=== PATIENT | male | born 1975 | race Caucasian/White ===

== ENCOUNTER 2025-06-17 08:58 | Inpatient (IN) | payer MEDICARE, BC ==
[~2025-06-17] VITALS: Ht 182.9 cm; Wt 97.5 kg
[~2025-06-17 08:58] MED LIST: ARIP882S2 IM; LITH300C3 PO; MIRT-89 PO; XANO1CAP4 PO
[2025-06-17] MEDS ORDERED: ZOLPIDEM TARTRATE 10 MG TABLET PO PRN (10:15)
[2025-06-17 10:50] LABS: GLUCOMETER DEV NAME(LOC) POC.BV; POC SARS-COV2 AG, FIA NEGATIVE (NEGATIVE)
[2025-06-17 11:07] VITALS: BP 132/82; PULSE 99; RESP 16; TEMP 98.1; O2SAT 100
[2025-06-17] MEDS ORDERED: INFLUENZA VIRUS VACCINE TVS (6MO+) 2025-26/PF 45 MCG/0.5 ML SYRINGE IM. ONE (14:00)
[2025-06-17] MEDS ORDERED: PNEUMOCOCCAL VACCINE POLYVALENT 0.5 ML SYRINGE [PPSV23] IM. ONE (14:00)
[2025-06-17] MEDS: PROPRANOLOL HCL 20 MG TABLET PO SCH (14:32)
[2025-06-17] MEDS: NICOTINE POLACRILEX 4 MG LOZENGE PO PRN (16:00)
[2025-06-17] MEDS ORDERED: ARIPiprazole LAUROXIL ER SUSPENSION 882 MG/3.2 ML SYRINGE IM SCH (17:00)
[2025-06-17 20:15] VITALS: BP 136/77; PULSE 76; RESP 17; TEMP 97.8; O2SAT 100
[2025-06-17] MEDS: ATORVASTATIN CALCIUM 10 MG TABLET PO SCH (20:32)
[2025-06-17] MEDS: LITHIUM CARBONATE 300 MG CAPSULE PO SCH (20:32)
[2025-06-17] MEDS: MIRTAZAPINE 15 MG TABLET PO SCH (20:32)
[2025-06-18] MEDS ORDERED: NICOTINE 14 MG/24 HOUR PATCH TD PRN (06:30)
[2025-06-18] MEDS ORDERED: MAGNESIUM HYDROXIDE SUSPENSION 30 ML UDCUP PO PRN (06:30)
[2025-06-18] MEDS ORDERED: GuaiFENesin/D-METHORPHAN [SUGAR-FREE] 200-20MG/10 ML SYRUP UDCUP PO PRN (06:30)
[2025-06-18] MEDS ORDERED: IBUPROFEN 400 MG TABLET PO PRN (06:30)
[2025-06-18] MEDS ORDERED: ONDANSETRON 4 MG TABLET PO PRN (06:30)
[2025-06-18] MEDS ORDERED: ALBUTEROL SULFATE HFA 90 MCG/PUFF 8 GM INHALER IH PRN (06:30)
[2025-06-18] MEDS ORDERED: PETROLATUM,WHITE 28 GM JELLY TP PRN (06:30)
[2025-06-18] MEDS ORDERED: MAG HYDROX/ALUMINUM HYD/SIMETH ES 30 ML SUSPENSION UDCUP PO PRN (06:30)
[2025-06-18] MEDS ORDERED: DOCUSATE SODIUM 100 MG CAPSULE PO PRN (06:30)
[2025-06-18] MEDS ORDERED: LOPERAMIDE HCL 2 MG CAPSULE PO PRN (06:30)
[2025-06-18 08:00] VITALS: BP 104/64; PULSE 77; RESP 18; TEMP 97.5; O2SAT 99
[2025-06-18 08:51] VITALS: RESP 18
[2025-06-18] MEDS: ACETAMINOPHEN 325 MG TABLET PO PRN (08:51)
[2025-06-18 09:40] LABS: PLATELET COUNT (AUTO) 186 K/uL (150-450); RED BLOOD CELL COUNT(AUTO) 4.78 MIL/uL (4.50-5.90); RED CELL DISTRIBUTION WIDTH 13.1 % (11.5-14.5); WHITE BLOOD COUNT (AUTO) 7.7 K/uL (4.5-11.0)
[2025-06-18 10:03] LABS: ASPARTATE AMINOTRANSFERASE 35 U/L (15-37); CALCIUM, TOTAL 9.1 mg/dL (8.8-10.5); CHOL/HDL RATIO 3.2 (4.2-7.3); CREATININE 0.76 mg/dL (0.60-1.30); GLOMERULAR FILTR. RATE CALC > 60 mL/min (>60); GLUCOSE,RANDOM 170 mg/dL (70-110); LDL CHOL (CALC.) 68 mg/dL (0-130); SODIUM SERUM 140 mmol/L (136-145); TOTAL PROTEIN, SERUM 6.6 g/dL (6.4-8.2); UREA NITROGEN, BLOOD 11 mg/dL (7-18)
[2025-06-18 10:13] LABS: ALCOHOL, BLOOD (SERUM) < 3 mg/dL (0-10)
[2025-06-18] MEDS: ARIPiprazole LAUROXIL ER SUSPENSION 882 MG/3.2 ML SYRINGE IM ONE (14:08)
[2025-06-18 18:41] VITALS: RESP 18
[2025-06-18] MEDS ORDERED: LITHIUM CARBONATE 300 MG CAPSULE PO SCH (21:00)
[2025-06-18 21:05] VITALS: BP 98/60; PULSE 69; RESP 18; TEMP 97.8; O2SAT 97
[2025-06-19 01:07] LABS: HEPATITIS C AB (EIA) Non Reactive (Non Reactive)
[2025-06-19 08:41] VITALS: BP 111/68; PULSE 69; RESP 17; TEMP 97.8; O2SAT 97
[2025-06-19 10:00] LABS: APPEARANCE,URINE CLEAR (CLEAR); GLUCOSE, URINE (UA) NEGATIVE (NEGATIVE); LEUKOCYTE ESTERASE ,URINE NEGATIVE (NEGATIVE); NITRATE,URINE NEGATIVE (NEGATIVE); OCCULT BLOOD,URINE NEGATIVE (NEGATIVE); PH,URINE DRUG SCREEN 6.5 (5.0-8.0); SPECIFIC GRAVITIY, URINE 1.018 (1.003-1.030)
[2025-06-19 10:03] LABS: ALCOHOL, URINE DRUG SCREEN NEGATIVE (NEGATIVE); AMPHET/METH SCREEN,URINE POSITIVE (NEGATIVE); BARBITURATE SCREEN, URINE NEGATIVE (NEGATIVE); CANNABINOID SCREEN,URINE NEGATIVE (NEGATIVE); COCAINE SCREEN,URINE POSITIVE (NEGATIVE); METHADONE SCREEN, URINE NEGATIVE (NEGATIVE)
[2025-06-19 10:07] LABS: CHOL/HDL RATIO 3.5 (4.2-7.3); LDL CHOL (CALC.) 62.0 mg/dL (0-130)
[2025-06-19 20:09] VITALS: BP 112/91; PULSE 65; RESP 18; TEMP 98.4; O2SAT 99
[2025-06-20 08:48] VITALS: BP 115/75; PULSE 76; RESP 16; TEMP 98.4; O2SAT 99
[2025-06-20 12:50] VITALS: BP 120/70; RESP 16
[2025-06-20 20:33] VITALS: BP 114/70; PULSE 62; RESP 17; TEMP 98.2; O2SAT 99
[2025-06-21 08:33] VITALS: BP 101/69; PULSE 66; RESP 18; TEMP 96.1; O2SAT 100
[2025-06-21 16:34] VITALS: BP 116/72; PULSE 63; RESP 18
[2025-06-21] MEDS: NICOTINE 21 MG/24 HOUR PATCH TD SCH (16:54)
[2025-06-21 20:52] VITALS: BP 115/76; PULSE 76; RESP 18; TEMP 97.9; O2SAT 99
[2025-06-22 08:30] VITALS: BP 121/65; PULSE 63; RESP 18; TEMP 97; O2SAT 100
[2025-06-22 20:20] VITALS: BP 119/66; PULSE 60; RESP 18; TEMP 98.6; O2SAT 99
[2025-06-23 08:57] VITALS: BP 113/58; PULSE 61; RESP 18; TEMP 98.2; O2SAT 97
[2025-06-23] MEDS ORDERED: HALO5TAB23 PO (08:59)
[2025-06-23] MEDS ORDERED: PROP40TA7 PO (08:59)
[2025-06-23] MEDS ORDERED: AMLO-257 PO (09:02)
[2025-06-23] MEDS ORDERED: ATOR10TA PO (09:02)
[2025-07-18] MEDS ORDERED: ARIPiprazole LAUROXIL ER SUSPENSION 882 MG/3.2 ML SYRINGE IM SCH (09:00)
== END 2025-06-23 11:00 | disposition home or self-care (01) | DRG 885 ==
LOC: B2X 10:13
PROVIDERS: ADMIT Psychiatry & Neurology Child & Adolescent Psychiatry; ATTEND Psychiatry & Neurology Child & Adolescent Psychiatry
PROC: GZ56ZZZ Individual Psychotherapy, Supportive (ICD-10-PCS; principal; 2025-06-17)
DX: F25.1 Schizoaffective disorder, depressive type (principal); R45.851 Suicidal ideations; F12.10 Cannabis abuse, uncomplicated; F10.10 Alcohol abuse, uncomplicated; I10 Essential (primary) hypertension; Z20.822 Contact with and (suspected) exposure to COVID-19; E78.5 Hyperlipidemia, unspecified; F14.10 Cocaine abuse, uncomplicated; F15.10 Other stimulant abuse, uncomplicated; F41.9 Anxiety disorder, unspecified; G47.00 Insomnia, unspecified; K59.00 Constipation, unspecified
CPT/HCPCS: 80053; 80061; 80178; 80307; 81003; 83036; 84436; 84439; 84443; 85025; 86803; 87340; G0480